=== PATIENT | male | born 1990 | race Caucasian/White ===

== ENCOUNTER 2021-06-14 11:49 | Emergency (ER) | payer BC ==
[~2021-06-14] VITALS: Ht 185.4 cm; Wt 131.5 kg
--- NOTE | 2021-06-14 12:01 | NUR ---
Bibs for c/o lower back pain x 2 weeks, denies trauma or injury, 01/20 ps. Will continue to monitor the patient.
[2021-06-14] MEDS: IV NS 0.9% 1,000 ML BAG IV ONE (12:14)
--- NOTE | 2021-06-14 12:14 | NUR ---
blood specimen collected and sent to the lab
[2021-06-14] MEDS: KETOROLAC TROMETHAMINE INJ 30 MG/ML VIAL IV ONE (12:15)
[2021-06-14] MEDS: ONDANSETRON HCL/PF 4 MG/2 ML VIAL IVP ONE (12:15)
[2021-06-14] MEDS ORDERED: KETOROLAC TROMETHAMINE 15 MG/ML VIAL ONE (12:18)
[2021-06-14] MEDS ORDERED: ONDANSETRON HCL/PF 4 MG/2 ML VIAL ONE (12:18)
[2021-06-14 12:19] LABS: BASOPHILS # (AUTO) 0.1 K/uL (0.0-0.2); BASOPHILS % (AUTO) 0.7 % (0.0-2.0); EOSINOPHILS % (AUTO) 2.7 % (0.0-6.0); HEMATOCRIT 45 % (39-51); HEMOGLOBIN 15.7 g/dL (13.5-17.5); LYMPHOCYTES # (AUTO) 2.2 K/uL (0.8-4.8); LYMPHOCYTES % (AUTO) 27.8 % (20.0-44.0); MEAN CORPUSCULAR HGB CONC 35 g/dl (31.0-36.0); MEAN CORPUSCULAR VOLUME 84 fL (80-96); MONOCYTES # (AUTO) 0.5 K/uL (0.1-1.30); MONOCYTES % (AUTO) 6.3 % (2.0-12.0); NEUTROPHILS # (AUTO) 4.9 K/uL (1.8-8.9); NEUTROPHILS % (AUTO) 62.5 % (43.0-81.0); PLATELET COUNT (AUTO) 194 K/uL (150-450); RED BLOOD CELL COUNT(AUTO) 5.39 MIL/uL (4.5-6.0); WHITE BLOOD COUNT (AUTO) 7.9 K/uL (4.3-11.0)
--- NOTE | 2021-06-14 12:24 | NUR ---
URINE COLLECTED AND SENT TO THE LAB
--- NOTE | 2021-06-14 12:24 | NUR ---
THE PATIENT IS TAKEN TO CT
--- NOTE | 2021-06-14 12:32 | NUR ---
THE PATIENT IS BACK FROM CT
[2021-06-14 12:55] LABS: BILIRUBIN,URINE NEGATIVE (NEGATIVE); COLOR,URINE YELLOW (YELLOW); LEUKOCYTE ESTERASE ,URINE NEGATIVE (NEGATIVE); NITRITE, URINE NEGATIVE (NEGATIVE); PH,URINE 7.5 (5.0-8.0); PROTEIN,URINE NEGATIVE (NEGATIVE); UGLUCOSE NEGATIVE (NEGATIVE); UROBILINOGEN,URINE 0.2 EU/dL (0.2)
[2021-06-14] MEDS: FENTANYL PF 100MCG/2ML AMPUL IV ONE (13:05)
[2021-06-14 13:23] LABS: CALCIUM, SERUM 8.7 mg/dL (8.5-10.1); CREATININE 1.2 mg/dL (0.6-1.3); POTASSIUM 4.1 mmol/L (3.5-5.1)
[2021-06-14 13:50] LABS: ALBUMIN 4.2 g/dL (3.4-5.0); BILIRUBIN,DIRECT 0.1 mg/dL (0.0-0.2); BILIRUBIN,TOTAL 0.2 mg/dL (0.2-1.0); TOTAL PROTEIN, SERUM 7.3 g/dL (6.4-8.2)
[2021-06-14] MEDS ORDERED: FENTANYL PF 100MCG/2ML AMPUL ONE (14:04)
[2021-06-14] MEDS ORDERED: IBUP-1955 PO (14:06)
[2021-06-14] MEDS ORDERED: CYCL5TAB PO (14:06)
--- NOTE | 2021-06-14 14:14 | NUR ---
IV removed. Catheter intact and site benign. Pressure and 4x4 applied to site. No bleeding noted.Patient discharged to home in stable condition. Written and verbal after care instructions given. Patient verbalizes understanding of instruction.
[2021-06-14 14:15] VITALS: BP 141/84
== END 2021-06-14 14:15 | disposition home or self-care (01) ==
LOC: ER 11:49
DX: M54.50 Low back pain, unspecified (principal); R11.2 Nausea with vomiting, unspecified; F32.9 Major depressive disorder, single episode, unspecified; F41.9 Anxiety disorder, unspecified; Z79.899 Other long term (current) drug therapy
CPT/HCPCS: 36415; 74176; 80048; 80076; 81003; 83690; 85025; 96361; 96374; 96375; 99284; J1885; J2405; J3010; J7030

== ENCOUNTER 2021-09-28 10:11 | Emergency (ER) | payer BC ==
[~2021-09-28] VITALS: Ht 185.4 cm; Wt 124.7 kg
[~2021-09-28 10:11] MED LIST: CYCL5TAB PO; IBUP-1955 PO
[2021-09-28 10:28] VITALS: BP 143/79
--- NOTE | 2021-09-28 10:30 | NUR ---
TO ER BED 19, C/O BODY PAIN X6MOS, STATED THAT HE INJURED HIS BACK EXERCISING BEFORE BUT NOW THE WHOLE BODY HURT, DENIES TRAUMA/INJURIES, AAOX3, BREATHING EVEN AND NON LABORED, AWAITING MD ORDERS
[2021-09-28] MEDS ORDERED: HYDROCODONE/APAP 5/325MG TABLET ONE (11:11)
[2021-09-28] MEDS ORDERED: KETOROLAC TROMETHAMINE INJ 30 MG/ML VIAL ONE (11:11)
[2021-09-28] MEDS ORDERED: HYDROCODONE/APAP 5/325MG TABLET PO ONE (11:30)
[2021-09-28] MEDS ORDERED: KETOROLAC TROMETHAMINE INJ 60 MG/2 ML VIAL IM ONE (11:30)
--- NOTE | 2021-09-28 11:44 | NUR ---
Patient discharged to home in stable condition. Written and verbal after care instructions given. Patient verbalizes understanding of instruction.
== END 2021-09-28 11:45 | disposition home or self-care (01) ==
LOC: ER 10:15
DX: M54.6 Pain in thoracic spine (principal); G89.29 Other chronic pain; F41.9 Anxiety disorder, unspecified; F32.9 Major depressive disorder, single episode, unspecified; Z79.899 Other long term (current) drug therapy
CPT/HCPCS: 96372; 99283; J1885

== ENCOUNTER 2021-10-07 15:04 | Emergency (ER) | payer BC ==
[~2021-10-07] VITALS: Ht 185.4 cm; Wt 127.0 kg
[2021-10-07 15:29] VITALS: BP 148/95
[2021-10-07] MEDS ORDERED: KETOROLAC TROMETHAMINE INJ 30 MG/ML VIAL ONE (15:51)
--- NOTE | 2021-10-07 15:57 | NUR ---
pt seen and examined by ermd provider, medicated as ordered. d/c home in stable condition.
[2021-10-07] MEDS ORDERED: KETOROLAC TROMETHAMINE INJ 60 MG/2 ML VIAL IM ONE (16:00)
== END 2021-10-07 15:58 | disposition home or self-care (01) ==
LOC: ER 15:07
DX: G89.29 Other chronic pain (principal); R20.2 Paresthesia of skin; F32.A Depression, unspecified; F41.9 Anxiety disorder, unspecified
CPT/HCPCS: 96372; 99283; J1885